=== PATIENT | female | born 1990 | race Caucasian/White ===

== ENCOUNTER 2018-06-13 14:26 | Outpatient (REF) | payer OTHER, SELFPAY ==
--- NOTE | 2018-06-13 14:00 | PAPFT_PTH ---
PATIENT: Chanel Esparza LOC: [facility] U#:[id number] AGE/SX: 28/F ROOM: RE06/13/[address]: Milan Valentin MD : 1990 BED: DIS: 06/13/2018 SPEC #: [id number] RECD: 06/13/18 17:55 STATUS: SCOTT REBaron #: [id number] CARINA: 06/13/18 14:[address]: Milan Valentin DEPT: [facility] Cytology RECD BY: Navya Koehler Tissues: 1 - CX/ENDOCX FOR PAP SMEARS Procedures: PAP THIN PREP/UVM Screening HPV DNA PROBE Comments: [id number] (CHLAMYDIA/GC)
[2018-06-14 15:54] LABS: Chlamydia Result Negative; GC Result Negative; Specimen Description SEE COMMENTS
== END 2018-06-13 14:46 ==
LOC: LBN 14:26
PROVIDERS: Visit Provider Obstetrics & Gynecology
DX: Z12.4 Encounter for screening for malignant neoplasm of cervix (principal); Z11.51 Encounter for screening for human papillomavirus (HPV); Z11.3 Encounter for screening for infections with a predominantly sexual mode of transmission; Z01.419 Encounter for gynecological examination (general) (routine) without abnormal findings
CPT/HCPCS: 87491; 87591; 88142; 87480; 87510; 87624; 87660

== ENCOUNTER 2018-08-17 18:06 | Outpatient (REF) | payer OTHER, SELFPAY ==
--- NOTE | 2018-08-17 15:00 | CER_PTH ---
PATIENT: Chanel Esparza LOC: [facility] U#:[id number] AGE/SX: 28/F ROOM: RE08/17/[address]: Ruthy Frances MD : 1990 BED: DIS: 08/17/2018 SPEC #: [id number] RECD: 08/17/18 18:12 STATUS: SCOTT RE #: [id number] CARINA: 08/17/18 15:[address]: Ruthy Frances DEPT: Surgical Specimen RECD BY: Navya Koehler Tissues: 1 - CERVICAL BIOPSY 2 - CERVICAL BIOPSY 3 - CERVICAL BIOPSY 4 - CERVICAL BIOPSY 5 - ENDOCERVICAL BX/CURRETTE Procedures: GROSS AND MICRO LEVEL 4 Comments: [id number]
== END 2018-08-17 18:26 ==
LOC: LBN 18:06
PROVIDERS: Visit Provider Obstetrics & Gynecology
DX: N72 Inflammatory disease of cervix uteri (principal); N87.9 Dysplasia of cervix uteri, unspecified; N88.8 Other specified noninflammatory disorders of cervix uteri; R87.810 Cervical high risk human papillomavirus (HPV) DNA test positive
CPT/HCPCS: 88305

== ENCOUNTER 2019-08-23 12:14 | Outpatient (REF) | payer SELFPAY ==
--- NOTE | 2019-08-23 11:30 | PAPFT_PTH ---
PATIENT: Chanel Esparza LOC: [facility] U#:[id number] AGE/SX: 29/F ROOM: RE08/23/[address]: Milan Valentin MD : 1990 BED: DIS: 08/23/2019 SPEC #: [id number] RECD: 08/23/19 13:16 STATUS: SCOTT REBaron #: [id number] CARINA: 08/23/19 11:[address]: Milan Valentin DEPT: [facility] Cytology RECD BY: Navya Koehler Tissues: 1 - CX/ENDOCX FOR PAP SMEARS Procedures: PAP THIN PREP/UVM Screening HPV DNA PROBE Comments: [id number]
== END 2019-08-23 12:34 ==
LOC: LBN 12:14
PROVIDERS: Visit Provider Obstetrics & Gynecology
DX: Z12.4 Encounter for screening for malignant neoplasm of cervix (principal)
CPT/HCPCS: 88142; 87624

== ENCOUNTER 2021-02-21 17:13 | Inpatient (IN) | payer BC, SELFPAY ==
--- NOTE | 2021-02-21 11:55 | APP_PTH ---
PATIENT: Chanel Esparza LOC: U#:[id number] AGE/SX: 31/F ROOM: RE02/21/[address]: Juli Anderson : 1990 BED: A DIS: 02/25/2021 SPEC #: [id number] RECD: 02/23/21 12:59 STATUS: SCOTT REQ #: [id number] CARINA: 02/21/21 11:[address]: Juli Anderson DEPT: Surgical Specimen RECD BY: Navya Koehler ENTERED: 02/23/21 12:59 SP TYPE: Appendix OTHR DR: Yuliet Velarde Tissues: 1 - APPENDIX NOT INCIDENTAL Procedures: GROSS AND MICRO LEVEL 3 Comments: [id number]
[2021-02-21 17:23] VITALS: BP 157/84; PULSE 111; RESP 20; TEMP 36.8; O2SAT 99
--- NOTE | 2021-02-21 17:45 | DI.CT_ITS ---
Exam(s) CT ABDOMEN PELVIS W EXAM: CT ABDOMEN PELVIS W INDICATION: RLQ pain, rebound guarding, has appendix and hx of. COMPARISON: No exams were available for comparison TECHNIQUE: FINDINGS: CT examination of the abdomen and pelvis was performed with a bolus infusion of 100 cc of Omnipaque 3 50. Images obtained through the lung bases are unremarkable. The liver is unremarkable in appearance. Prior cholecystectomy noted. No biliary dilatation. Pancreas appears normal. Spleen is unremarkable in appearance. Adrenals appear normal. The kidneys are unremarkable with no evidence of hydronephrosis, nephrolithiasis, or renal mass.. Ur inary bladder unremarkable. Abdominal aorta is of normal diameter and no major vascular abnormality is seen. No abdominal wall hernia. No abdominal or pelvic adenopathy. LOOP TACKER structures appear intact with an IUD in place in the uterine midline.. Appendix is markedly distended and thick-walled with and a visible appendicoliths at the base of the appendix. There is marked periappendiceal edema and small free fluid in the pelvis. Findings are hi ghly suggestive of acute appendicitis. No abscess or perforation identified. No evidence of diverticulitis or bowel obstruction. IMPRESSION: Acute appendicitis, no evidence of abscess or perforation at this time. RADIATION DOSE DELIVERED: 1,257.94mGy.cm Total DLP 1,257.94mGy.cm Total DLP RADIATION OPTIMIZATION: All CT scans at this facility use at least one of these dose optimization te chniques: automated exposure control; mA and/or kV adjustment per patient size (includes targeted exa ms where dose is matched to clinical indication); or iterative reconstruction.
--- NOTE | 2021-02-21 17:54 | W.ED.GENAD ---
Discharge Plan Discharge Details Chief Complaint: Abd Prob Attending Provider: Juli Anderson Primary Care Provider: Yuliet Velarde ED Provider: Navya Ramey Discharge Data Discharge Date/Time-TO BE ENTERED AT DEPARTURE: 02/21/21 22:05 Medical Decision Making Patient has evidence of acute appendicitis per Dr. Ely, radiology I personally reviewed the CT findings as well Leukocytosis noted, elevated CRP Case discussed with Dr. Anderson will take patient to the operating room Patient was initiated on Zosyn She declined any opiate analgesia. Patient received 2 L of normal saline, she did stop what I suspect is dehydration Tachycardia has mildly improved at 104 Differential Diagnosis Differential Diagnosis: Pelvic inflammatory disease, appendicitis, urinary tract infections, ovaria Medical Records Medical records reviewed: Yes I reviewed the patient's medical records. Lab Data Lab results reviewed: Yes I reviewed the patient's lab results. HPI General Mode of arrival: ambulatory. Date/Time Provider Initiated Documentation: 02/21/21 17:42. Limitations to Documentation: no limitations. Information obtained by: patient. HPI Narrative: This 31-year-old female presents with report of right upper quadrant pain for the past 34 hours. She did have a history of ovarian cyst but this pain was different. She states she is have some spotting in the past week but does have Mirena IUD and is unsure where she has been her cycles. She denies risk of sexually transmitted disease. Her pain is worse with ambulating. She states that her heart rate has been elevated but denies fever. She denies any nausea or vomiting. She denies anorexia. Denies similar pain to this in the past. States pain is been constant. Denies chance of .?Otherwise, Related Data Home Medications Medication Instructions Recorded Confirmed bupropion HCl 150 mg tablet,12 hr 450 mg PO DAILY 07/26/19 02/21/21 sustained-release Allergies Allergy/AdvReac Type Severity Reaction Status Date / Time No Known Drug Allergies Allergy Unverified 02/21/21 17:25 General Stated Complaint: Abd Prob DENAE: 3 Review of Systems Narrative: Review of systems obtained x7 aside from where indicated in HPI PFSH Surgical History (Updated 06/13/18 @ 13:21 by Valerie Guevara RN) H/O arthroscopic knee surgery History of laparoscopic cholecystectomy Right knee Social History (Updated 06/13/18 @ 13:24 by Valerie Guevara RN) Smoking/Tobacco Use Status: Never Smoking risk assessment performed?: Yes Alcohol Intake: current Alcohol Intake frequency: a few times a month Alcohol type: beer, wine and hard liquor Drug use: Occasionally Substance use type: marijuana Household members: none Number of Children: 0 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-60 minutes/day Frequency: 5-6 times per week Special lashawn needs: No Agree to transfusion: No Do you feel safe at home: Yes Victim of physical abuse: No Victim of emotional abuse: No Victim of sexual abuse: No Female Reproductive History Menstrual control method: progestin IUCD History History 0 Para Hx # Term Pregnancies Multiple births Hx # Pregnancies Ectopic pregnancies AB induced Hx Number of Living Children AB spontaneous Exam Const General: cooperative and no acute distress Chest Chest: normal inspection of the chest Resp Effort & Inspection: normal respiratory effort Auscultation: clear to auscultation bilaterally Cardio Rate: tachycardic Rhythm: regular rhythm GI Other: Focal peritonitis to right lower quadrant Skin General skin exam: no rashes or lesions noted Neuro General: patient alert and patient oriented x3 Course Vital Signs Vital signs: Vital Signs Temperature 36.8 C 02/21/21 17:23 Pulse 111 H 02/21/21 17:23 Respiratory Rate 20 02/21/21 17:23 Blood Pressure 157/84 H 02/21/21 17:23 Pulse Oximetry 99 02/21/21 17:23 Temperature 36.8 C 02/21/21 17:23 Temperature Source Skin 02/21/21 17:23 Pulse 111 H 02/21/21 17:23 Respiratory Rate 20 02/21/21 17:23 Respiratory Effort Non-Labored 02/21/21 17:26 Blood Pressure 157/84 H 02/21/21 17:23 Blood Pressure Position Sitting 02/21/21 17:23 Pulse Oximetry 99 02/21/21 17:23 Oxygen Delivery Method Room Air 02/21/21 17:23 Oxygen Flow Rate 0 02/21/21 17:23 Pain Level 6 02/21/21 17:23
[2021-02-21 18:23] LABS: Abs Immature Grans 0.06 10^3/uL (0.0-0.06); Absolute Basophil Count 0.06 10^3/uL (0.0-0.2); Absolute Eosinophil Count 0.05 10^3/uL (0.0-0.7); Absolute Lymphocyte Count 1.41 10^3/uL (1.2-3.4); Absolute Monocyte Count 2.31 10^3/uL (0.1-0.8); Basophils % 0.4; Eosinophils % 0.3; HCT 39.2 % (36.0-46.0); HGB 13.1 g/dL (11.2-15.7); Immature Grans % 0.4; Lymphocytes % 8.8; MCH 30.2 pg (27.0-33.0); MCHC 33.4 % (32.0-36.0); MCV 90.3 fL (80-95); MPV 8.9 fL (8.0-11.0); Monocytes % 14.4; Neutrophils % 75.7; Nucleated RBC 0 %; Platelet Count 280 10^3/uL (130-400); RBC 4.34 10^6/uL (3.93-5.22); RDW-SD 42.6 fL; WBC 16.06 10^3/uL (4.4-10.8)
[2021-02-21] MEDS: Normal Saline 1,000 ML 1000 ML IV ×2 (18:23→20:37)
[2021-02-21 18:44] LABS: Lipase 28 U/L (73-393)
[2021-02-21 18:48] LABS: Absolute Neutrophil Count 12.16 10^3/uL (1.2-6.7)
[2021-02-21] MEDS: Omnipaque 350 MG/ML 100 ML BTL IJ (18:57)
[2021-02-21] MEDS: Normal Saline - Diluent 50 ML VIAL IV (18:58)
[2021-02-21] MEDS: ACETAMINOPHEN 1,000 MG/100 ML BTL 400 MG IVPB (19:00)
[2021-02-21 19:08] LABS: Bilirubin Small (Negative); Blood Negative (Negative); Clarity Clear (Clear); Glucose Negative (Negative); Ketones >=160 mg/dL (Negative); Leukocyte Esterase Trace (Negative); Nitrite Negative (Negative); Specific Gravity >= 1.030 (1.005-1.025); Urobilinogen 0.2 EU/dL (Up TO 0.2)
[2021-02-21 19:24] LABS: Bacteria Negative HPF (Negative); Casts Negative LPF (Negative); Crystals Negative HPF (Negative); Epithelial Cells Few HPF (Negative); Mucus Negative (Negative); Other Cells Negative (Negative); RBC Negative HPF (0-2)
[2021-02-21 19:25] LABS: C & S Indicated? Yes
[2021-02-21 19:43] LABS: Anion Gap 14.4 mmol/L (3-11); CO2 23.6 mmol/L (21.0-32.0); Chloride 102 mmol/L (98-107); Potassium 3.6 mmol/L (3.5-5.1); Sodium 140 mmol/L (136-145)
[2021-02-21 19:52] LABS: ALT 35 U/L (14-59); AST 23 U/L (15-37); Albumin 3.5 g/dL (3.4-5.0); Alkaline Phosphatase 59 U/L (46-116); BUN 10 mg/dL (7-18); CREATININE 0.9 mg/dL (0.55-1.02); Calcium 8.8 mg/dL (8.5-10.1); Glucose 79 mg/dL (74-106); Total Protein 7.4 g/dL (6.4-8.2)
--- NOTE | 2021-02-21 20:10 | DI.VRAD_ITS ---
PROCEDURE INFORMATION: Exam: CT Abdomen And Pelvis With Contrast Exam date and time: 02/21/2021 5:55 PM Age: 31 years old Clinical indication: Abdominal pain; Localized; Right lower quadrant (rlq); Patient HX: Rlq pain, rebound guarding, has appendix TECHNIQUE: Imaging protocol: Computed tomography of the abdomen and pelvis with contrast. Total images: 1227 COMPARISON: No relevant prior studies available. FINDINGS: Lungs: Lung bases are unremarkable. Liver: Homogeneously enhances without mass. Gallbladder and bile ducts: Status post cholecystectomy. Pancreas: No mass or peripancreatic edema. Spleen: Homogeneously enhances. No splenomegaly. Adrenal glands: No adrenal nodule. Kidneys and ureters: Kidneys homogeneously enhance. No hydronephrosis. No renal or ureteral calculi. Stomach and bowel: Stomach is grossly unremarkable. No small or large bowel dilatation. No definite bowel wall thickening. Appendix: The appendix is markedly distended to 2 cm. There is a large appendicolith at its base as well as 1 near its tip. Appendiceal wall is mildly thickened. Small amount of intraluminal air near the base of the appendix. There is moderate stranding and fluid within the adjacent mesentery. No abscess. No extraluminal air. Intraperitoneal space: Mild amount of free fluid in the cul-de-sac. Vasculature: No abdominal aortic aneurysm. Lymph nodes: No significant adenopathy. Urinary bladder: No definite bladder wall thickening. Reproductive: Symmetric follicular changes in the ovaries. IUD properly position in an anteverted uterus. Bones/joints: No significant bony or joint space abnormality. Soft tissues: Extra-abdominal soft tissues are unremarkable. IMPRESSION: 1. Acute appendicitis. 2. THIS REPORT CONTAINS FINDINGS THAT MAY BE CRITICAL TO PATIENT CARE. The findings were verbally communicated via telephone conference with Navya Ramey at 8:10 PM EDT on 02/21/2021. The findings were acknowledged and understood. Dictated and Authenticated by: Alejandro Sena MD. Ordering:MARIAN Mendosa MD
[2021-02-21 20:12] VITALS: BP 118/67; PULSE 104; RESP 16; TEMP 36.7; O2SAT 98
[2021-02-21] MEDS: PIPERACILLIN/TAZO 3.375 GM in Normal Saline 50 ML IVPB (20:35)
[2021-02-21 20:39] LABS: Source Nasal/Nares
--- NOTE | 2021-02-21 21:02 | ANES.PREOP_ITS ---
General Info Date of Service Date Performed: 02/21/21 Height: 5 ft 5 in Weight: 106.594 kg Body Mass Index (BMI): 39.1 Surgical Procedure: Operation Date: 02/21/21 20:45 Proposed Procedures Side Surgeon p Appendectomy Laparoscopic Not Applicable Juli Anderson DO Meds Allergies and Home Medications Allergies Allergy/AdvReac Type Severity Reaction Status Date / Time No Known Drug Allergies Allergy Unverified 02/21/21 17:25 Home Medication Medication Instructions Recorded bupropion HCl 150 mg tablet,12 hr 450 mg PO DAILY 07/26/19 sustained-release Current Visit Medications: Current Medications Generic Name Dose Route Start Last Admin Trade Name Freq PRN Reason Stop Dose Admin Sodium Chloride 1,000 mls @ 1,000 mls/hr 02/21/21 20:11 02/21/21 20:37 Saline 1000ml Bag IV 02/21/21 21:10 1,000 mls/hr BOLUS ONE Administration Iohexol 100 ml 02/21/21 19:00 02/21/21 18:57 Omnipaque 350 Mg/Ml 100 Ml Btl IJ 03/23/21 23:59 100 ml DIRECTED JOHNSON Administration Sodium Chloride 50 ml 02/21/21 19:00 02/21/21 18:58 Normal Saline - Diluent 50 Ml Vial IV 50 ml .FOR DI USE JOHNSON Administration PFSH Active Problems Active Problems: Problem Status Onset Code Screening for malignant neoplasm of cervix Z12.4 Encounter for insertion of mirena IUD Z30.430 Asthma J45.909 Surgical History Surgical History (Updated 06/13/18 @ 13:21 by Valerie Guevara RN) H/O arthroscopic knee surgery History of laparoscopic cholecystectomy Right knee Tobacco Smoking/Tobacco Use Status: Never Alcohol Alcohol Intake: current Alcohol intake frequency: a few times a month Alcohol type: beer, wine and hard liquor Substance Use Substance use: Occasionally Substance use type: marijuana Prental History History 0 Para Hx # Term Pregnancies Multiple births Hx # Pregnancies Ectopic pregnancies AB induced Hx Number of Living Children AB spontaneous Vital Signs and Lab Results Vital Signs Most Recent Vital Signs in EMR: Most Recent Vital Signs Temp Pulse Resp BP Pulse Ox 36.7 C 104 H 16 118/67 98 02/21/21 20:12 02/21/21 20:12 02/21/21 20:12 02/21/21 20:12 02/21/21 20:12 Point of Care Results Point of Care Results: POC- Test(urine) Negative 02/21/21 18:24 Lab Results Result Diagrams: 02/21/21 18:15 02/21/21 18:15 Blood Type / Crossmatch: No Data to Display Complete Blood Count: White Blood Count 16.06 10^3/uL (4.4-10.8) H 02/21/21 18:15 02/21/21 Red Blood Count 4.34 10^6/uL (3.93-5.22) 02/21/21 18:15 02/21/21 Hemoglobin 13.1 g/dL (11.2-15.7) 02/21/21 18:15 02/21/21 Hematocrit 39.2 % (36.0-46.0) 02/21/21 18:15 02/21/21 Platelet Count 280 10^3/uL (130-400) 02/21/21 18:15 02/21/21 Complete Metabolic Panel: 2 Sodium Level 140 mmol/L (136-145) 02/21/21 18:15 02/21/21 Potassium Level 3.6 mmol/L (3.5-5.1) 02/21/21 18:15 02/21/21 Chloride Level 102 mmol/L (98-107) 02/21/21 18:15 02/21/21 Carbon Dioxide Level 23.6 mmol/L (21.0-32.0) 02/21/21 18:15 02/21/21 Blood Urea Nitrogen 10 mg/dL (7-18) 02/21/21 18:15 02/21/21 Creatinine 0.9 mg/dL (0.55-1.02) 02/21/21 18:15 02/21/21 Calcium Level 8.8 mg/dL (8.5-10.1) 02/21/21 18:15 02/21/21 Albumin 3.5 g/dL (3.4-5.0) 02/21/21 18:15 02/21/21 Glucose Level 79 mg/dL (74-106) 02/21/21 18:15 02/21/21 C-Reactive Protein 7.80 mg/dL (0.0-0.3) H 02/21/21 18:15 02/21/21 Liver Function Panel: Alanine Aminotransferase (ALT/SGPT) 35 U/L (14-59) 02/21/21 18:15 02/21/21 Aspartate Amino Transf (AST/SGOT) 23 U/L (15-37) 02/21/21 18:15 02/21/21 Coagulation Panel: No Data to Display Cardiac Panel: No Data to Display Arterial Blood Gas: No Data to Display Venous Blood Gas: No Data to Display Pancreas Panel: Lipase 28 U/L (73-393) 02/21/21 18:15 02/21/21 Thyroid Panel: No Data to Display Infectious Disease: Coronavirus (COVID-19)(PCR) Pending 02/21/21 20:15 02/21/21 Coronavirus 2019 Source Nasal/nares 02/21/21 20:15 02/21/21 Blood Cultures: No Data to Display Toxicology Panel: No Data to Display Panel: No Data to Display Anesthesia Assessment and Plan Anesthesia History Personal History: No History of Anesthesia Complications and PONV Family History: No Family History of Anesthesia Complications Exercise Tolerance Exercise Tolerance: Metabolic Equivalents>4 Pertinent Negatives Pertinent Negatives: No Symptoms of GERD, No Major Cardiovascular Symptoms or Complaints, No Major Pulmonary Symptoms or Complaints (Asthma well controlled ), No History of CVA/TIA and Other Cardiac & Pulmonary Exam Cardiac Exam: Normal S1/S2 Heart Sounds Pulmonary Exam: Clear Bilateral Breath Sounds Airway Exam Known Difficult Airway: No Mallampati Class: 2 Mouth Opening: Narrow (< 3cm) Thyromental Distance: Less than 3 cm Neck Range of Motion: Full ROM Neck Circumference: Normal Teeth Condition: Loose or Chipped ASA Classification ASA Score: ASA 2 Emergency Case?: Yes NPO Status NPO Status: NPO Clears >2 hours, Solids >8 hours Status Status: Negative HCG Anesthesia Plan Resuscitation Status: Full Code Anesthesia Technique: General Anesthesia Airway Planned: Endotracheal Tube Monitors Used: Standard Monitors
--- NOTE | 2021-02-21 21:17 | W.PM.HP.N ---
Date of service: 02/21/21 Time of Service: 21:18 Assessment and Plan Assessment and plan (1) Asthma: Status: Chronic (2) Acute appendicitis: Status: Acute Assessment and plan: Informed consent is obtained for the procedural (explained in simple layman's terms that the pt and/or family could understand) explaining risks vs benefits and alternatives to the procedure and consequences if we do not do the procedure. Risks include but are not limited to:bleeding,infections, pneumonia, blood clots/DVT/PE, anesthesia(aspiration, damage to teeth/airway/AK/CVA//prolonged mechanical ventilation/PTX/IV infections), damage to bowel, bladder,blood vessels, ureters. Infertility. Leakage from anastomosis/suture line, requiring colostomy/ Wound infections requiring further surgery.Scarring and disfigurement. Subsequent bowel obstructions from scar tissue. Possible open procedure if minimally invasive procedure is being attempted. Hernias. And other unforetold complications. Patient does want to go home to spend the night. We will see how she wakes up anesthesia. We will try PONV patch and see if that helps with her postop nausea and vomiting. She did receive Zosyn in the ED (3) PONV (postoperative nausea and vomiting): Status: Acute History of Present Illness Consults Consult date: 02/21/21 Narrative: Pt started having RLQ pain on Tuesday. Also Noted minimal appetite. She does have a history of ovarian cysts- and thought it was just another cyst forming. Today the pain became severe, she had absolutely no appetite and nausea. She came into the ED this evening. She does have a history of ovarian cyst. She does not have a history of GI problems. She is a traveling nurse. She is unvaccinated for Covid. She does have a history of asthma-it has not been a problem for her lately. She does not use any inhalers. She is not a smoker. She does have a history of postop nausea and vomiting. She has had a previous lap anila and left knee surgery. I did personally review her CT and her lab work. Covid test pending. She did have a negative test 5 days ago. No history of any heart problem. No history of diabetes. She is not smoker. Review of Systems All systems reviewed & are unremarkable except as noted in HPI and below [facility] Surgical History (Updated 06/13/18 @ 13:21 by Valerie Guevara RN) H/O arthroscopic knee surgery History of laparoscopic cholecystectomy Right knee Social History (Updated 06/13/18 @ 13:24 by Valerie Guevara RN) Smoking/Tobacco Use Status: Never Smoking risk assessment performed?: Yes Alcohol Intake: current Alcohol Intake frequency: a few times a month Alcohol type: beer, wine and hard liquor Drug use: Occasionally Substance use type: marijuana Household members: none Number of Children: 0 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 times per week Special lashawn needs: No Agree to transfusion: No Do you feel safe at home: Yes Victim of physical abuse: No Victim of emotional abuse: No Victim of sexual abuse: No Female Reproductive History Menstrual control method: progestin IUCD History History 0 Para Hx # Term Pregnancies Multiple births Hx # Pregnancies Ectopic pregnancies AB induced Hx Number of Living Children AB spontaneous Meds Allergies and Home Medications Allergies Allergy/AdvReac Type Severity Reaction Status Date / Time No Known Drug Allergies Allergy Unverified 02/21/21 17:25 Home Medications Medication Instructions Recorded Confirmed Type bupropion HCl 150 mg tablet,12 hr 450 mg PO DAILY 07/26/19 02/21/21 History sustained-release Exam Const General: cooperative, healthy appearing, comfortable, no acute distress, well developed and well groomed Nutritional Appearance: average body habitus and well nourished Orientation: alert, awake and oriented x3 HENMT Head: normal to inspection, normocephalic and atraumatic Ears: hearing grossly normal bilaterally and external ears normal General nose exam: external nose normal Face and sinus: normal facial exam and sinuses nontender Mouth: oral mucosae normal, lip normal, tongue normal and moist mucous membranes Teeth and gingiva: dentition normal Eyes General: appearance normal, both eyes and all related structures Conjunctivae: conjunctivae normal Sclera: sclerae normal Pupils: PERRL Neck Neck: normal visual inspection and full ROM Chest Chest: normal inspection of the chest Resp Effort & Inspection: normal respiratory effort, able to speak in complete sentences, no cough, no nasal flaring, not tachypneic and no use of accessory muscles Auscultation: clear to auscultation bilaterally, no rales, no rhonchi and no wheezes Cardio Jugular venous pressure: no JVD Rate: regular rate Rhythm: regular rhythm GI Inspection: normal to inspection, no edema and non-distended Palpation: soft, no hernias, no masses, tender in the RLQ and No ascites Auscultation: normal bowel sounds Other: Localized rebound and guarding in the right lower quadrant. Bowel sounds are hypoactive. No hernias at the umbilicus. Incisions from previous lap anila noted Skin General skin exam: no rashes or lesions noted Trauma: no lacerations or abrasions Neuro General: patient alert, patient oriented x3, oriented, gait normal, moves all extremities, no focal motor deficits and CN's II-XI intact bilaterally Cognition: normal cognition Speech: speech normal Gait: normal gait Motor: muscle tone normal throughout Extrem General: normal to inspection, full ROM and no clubbing, cyanosis or edema Psych Appearance: grossly normal and well kempt Mental Status: mental status grossly normal Speech and Movement: speech and movement normal Affect: normal affect Results Labs Result diagrams: 02/21/21 18:15 02/21/21 18:15 Labs: Laboratory Results - last 24 hr 02/21/21 02/21/21 02/21/21 18:15 18:15 18:15 WBC 16.06 H RBC 4.34 Hgb 13.1 Hct 39.2 MCV 90.3 MCH 30.2 MCHC 33.4 RDW 13.0 Plt Count 280 MPV 8.9 Immature Gran % 0.4 Neutrophils % 75.7 Lymphocytes % 8.8 Monocytes % 14.4 Eosinophils % 0.3 Basophils % 0.4 Nucleated RBC % 0 Absolute Neutrophils 12.16 H Absolute Lymphocytes 1.41 Absolute Monocytes 2.31 H Absolute Eosinophils 0.05 Absolute Basophils 0.06 Sodium 140 Potassium 3.6 Chloride 102 Carbon Dioxide 23.6 Anion Gap 14.4 H BUN 10 Creatinine 0.9 Estimated GFR/1.73 m2 >= 60.00 Glucose 79 Calcium 8.8 Total Bilirubin 1.0 AST 23 ALT 35 Alkaline Phosphatase 59 C-Reactive Protein 7.80 H Total Protein 7.4 Albumin 3.5 Lipase 28 Urine Color Urine Clarity Urine pH Ur Specific [place] Urine Protein Urine Ketones Urine Blood Urine Nitrite Urine Bilirubin Urine Urobilinogen Ur Leukocyte Esterase Urine RBC Urine WBC Ur Epithelial Cells Urine Crystals Urine Bacteria Urine Casts Urine Mucus Urine Other Ur Culture Indicated? Urine Glucose COVID-19 Source 02/21/21 02/21/21 18:15 20:15 WBC RBC Hgb Hct MCV MCH MCHC RDW Plt Count MPV Immature Gran % Neutrophils % Lymphocytes % Monocytes % Eosinophils % Basophils % Nucleated RBC % Absolute Neutrophils Absolute Lymphocytes Absolute Monocytes Absolute Eosinophils Absolute Basophils Sodium Potassium Chloride Carbon Dioxide Anion Gap BUN Creatinine Estimated GFR/1.73 m2 Glucose Calcium Total Bilirubin AST ALT Alkaline Phosphatase C-Reactive Protein Total Protein Albumin Lipase Urine Color Yellow Urine Clarity Clear Urine pH 6.0 Ur Specific [place] >= 1.030 H Urine Protein Negative Urine Ketones >=160 H Urine Blood Negative Urine Nitrite Negative Urine Bilirubin Small H Urine Urobilinogen 0.2 Ur Leukocyte Esterase Trace H Urine RBC Negative Urine WBC 3-5 Ur Epithelial Cells Few Urine Crystals Negative Urine Bacteria Negative Urine Casts Negative Urine Mucus Negative Urine Other Negative Ur Culture Indicated? Yes Urine Glucose Negative COVID-19 Source Nasal/nares Last Vital Signs Temp 36.7 C 02/21/21 20:12 Pulse 104 H 02/21/21 20:12 Resp 16 02/21/21 20:12 BP 118/67 02/21/21 20:12 Pulse Ox 98 02/21/21 20:12 COVID-19 Screening Have you, or household traveled for leisure in last 14 days?: Yes Had IN PERSON contact w/suspected or confirmed C-19 person: No
[2021-02-21 21:21] VITALS: BMI 39.1
--- NOTE | 2021-02-21 21:35 | ROE_ITS ---
Date of service: 02/21/21 Time of Service: 21:36 Operative Note Operative Note DATE OF PROCEDURE: 02/21/21 PRE-OP DIAGNOSIS: acute appy POST-OP DIAGNOSIS: other (ruptured appy) PROCEDURE: attempted lap/open appy SURGEON: Yaquelin Miller GLASS FRAME FITTER: Yaquelin Hawthorne ANESTHESIA TYPE: Local By Surgeon and General LMA/ETT Refer to Anesthesia Record ESTIMATED BLOOD LOSS: 25 PATHOLOGY: other COMPLICATIONS: None Patient was transported to: PACU Patient's condition: stable Procedure Description: : The patient has signs and symptoms compatible with acute appendicitis and is brought to the OR for laparoscopic appendectomy, possible open procedure. Informed consent is obtained for the procedural (explained in simple layman's terms that the pt and/or family could understand) explaining risks vs benefits and alternatives to the procedure and consequences if we do not do the procedure. Risks include but are not limited to:bleeding,infections, pneumonia, blood clots/DVT/PE, anesthesia(aspiration, damage to teeth/airway/FL/CVA//prolonged mechanical ventilation/PTX/IV infections), damage to bowel, bladder,blood vessels, ureters. Damage to solid organs requiring removal. Infertility. Leakage from anastomosis requiring colostomy. Wound infections requirng further surgery. Scarring and disfigurement. Subsequent bowel obstructions from scar tissue. Possible open procedure if minimaly invsive procedure is being attempted. Abscess and stump appendicitis as well as others. DESCRIPTION OF PROCEDURE: The patient was brought to the operating room suite and placed in supine position. Anesthesia was administered per the Department of Anesthesia. A Padilla catheter and OG tube are placed. The patient was prepped and draped in the usual sterile fashion using ChloraPrep scrub solution. Pause for the cause was done. 30 mL of half percent Marcaine was used for local anesthetization. A stab incision was made in the umbilicus and the Veress was inserted. She has had a laparoscopic cholecystectomy in the past. I was not able to place the very successfully, so at this point a cutdown was performed. 0 Vicryl sutures are used for fascial stay sutures. A finger was placed into the peritoneum and the adhesions were bluntly taken down. The 5 mm port was placed . the camera was inserted through the port. There is no damage to underlying structures. Bowel, liver and stomach that are visualized are normal in appearance. Uterus is normal. She does have a small right ovarian cyst. The left ovary was not identified . the appendix is inflamed, erythematous,enlarged, & distened. It is adhered to the sidewall and is adhesed to the small bowel. There is 20 cc of green, purulent drainage in the pelvis. A 12 mm port was then placed in the suprapubic position under direct visualization following creation of a local field block as well as a second 5 mm port in the LLQ. As the appendix is initially grasped, it is so necrotic, that, it unfortunately ruptures and there is stool leakage into the abdomen. Considerable amount of time is spent dissecting the appendix from the anterior sidewall and from the loops of small bowel. As well as dissecting the cecum and freeing up the peritoneal attachments. I was finally able to identify the appendiceal mesentery. This is transected with 2 Endo SHERYA staplers with the vascular load. The stump of the appendix and the staple line on the cecum are necrotic and the tissue is not healthy. Multiple multiple maneuvers were tried to get it the stapler across a small portion of the cecum and to complete the procedure laparoscopically. Unfortunately I am not able to accomplish this There is not technically feasible. At this point it was decided to open the abdomen to facilitate excision of the necrotic stump and necrotic areas on the cecum and oversew oversewn the cecum. A 4 inch incision paramedian vertical incision is made at McBurney's point. Electrocautery was used to provide hemostasis, and dissect through the fascia. The rectus is retracted medially. The peritoneum is elevated. and the abdomen is entered sharpl. the cecum is delivered through the incision. The base is grasped with Allis and elevated. At this angle I am able to place the SHREYA stapler across the unhealthy portions and remove the appendiceal stump and a small portion of the cecum- 3 cm long and 1 cm wide. The staple line was then oversewn with interrupted 4-0 sutures in a traditional Lembert fashion. We are nowhere near the ileocecal valve, and this should not affect digestion once it is completely healed. There is still a good lumen palpable. There is no signs of any bleeding or ischemia. The abdomen is then quickly irrigated with 5 L saline making sure to go over the liver indenting the pelvis. The small bowel is run and there is no interloop abscesses. A 15 Korean Winston drain is passed through the suprapubic port site and sewn in place with 0 nylon. the drain is placed on the right gutter & pelvis. All structures are returned to their normal anatomic position. Interceed is placed into the wound. The peritoneum and posterior fascia is closed with 0 Vicryl in a running fashion. The anterior fascia was closed with 0 Vicryl in a [id number] interrupted fashion. Sponge, needle count, instrument counts are all correct. The fat pad is copiously irrigated with 500 cc of saline. the skin was loosely approximated with 2-0 nylon. Betadine soap pledgets are placed into the skin incision. Skin toney were used to close the port site. And glue was applied. Sterile dressings are applied patient tolerated the procedure well without complication transferred condition. She will be admitted to the hospital for pain management, IV antibiotics, bowel rest. Mother was apprised of the findings at surgery and her condition and prognosis. YAQUELIN MILLER, DO ?
[2021-02-21 22:00] LABS: COVID-19 PCR Negative (Negative)
[2021-02-21] MEDS: Scopolamine 1 MG/3 DAYS PATCH TD (22:10)
[2021-02-22] VITALS (17 sets, daily range): BP systolic 100–140; BP diastolic 64–82; PULSE 68–98; RESP 17–22; TEMP 36–37.2; O2SAT 93–100
[2021-02-22] MEDS: Lactated Ringers 1,000 ML 30 ML IV (01:30)
--- NOTE | 2021-02-22 03:10 | PGE_ITS ---
Date of Service Date of service: 02/22/21 Time of Service: 03:10 Assessment and Plan Assessment and plan (1) Ruptured suppurative appendicitis: Status: Acute Assessment and plan: The patient is doing well post-op. Their pain is well controlled. They are having no nausea or vomiting. The pt is not having any chest pain or SOB, productive cough; no calf pain or swelling. The pt is making good urine. The pt pain is adequately controlled. The case was discussed with nursing and patient?s progress reviewed. All of the pt's home medications were addressed and adjusted accordingly for their oral intact status. HEENT: no jaundice. no eye pain/drainage/redness/swelling. Mild sore throat Cardio- NSR no chest pain, BP stable. Pulm: no sob or productive cough. no hemoptysis Incision- clean/dry. Dressing intact no excessive bleeding or drainage I discussed with the patient and/or there family about the findings in surgery and the pt's progress. We reviewed expectations for progress in the hospital; what the pt could expect for recovery time and length of stay. We discussed the importance of walking and pulmonary toilet to avoid blood clots and pneumonia. Continue current plans for pulmonary toilet, GI and DVT prophylaxis. We shall continue the current plan for pain management as it is at an appropriate level, and working well for the pt. Appropriate measures will be taken for constipation prevention, and this was also reviewed with the pt. The wound care plan was reviewed with nursing as well. see orders (2) PONV (postoperative nausea and vomiting): Status: Acute (3) Acute appendicitis: Status: Acute (4) Asthma: Status: Chronic (5) Anxiety: Status: Chronic Objective Last Vital Signs Temp 36.6 C 02/22/21 02:52 Pulse 68 02/22/21 02:52 Resp 22 02/22/21 02:52 BP 134/68 02/22/21 02:52 Pulse Ox 100 02/22/21 02:52 Laboratory Results - last 24 hr 02/21/21 02/21/21 02/21/21 18:15 18:15 18:15 WBC 16.06 H RBC 4.34 Hgb 13.1 Hct 39.2 MCV 90.3 MCH 30.2 MCHC 33.4 RDW 13.0 Plt Count 280 MPV 8.9 Immature Gran % 0.4 Neutrophils % 75.7 Lymphocytes % 8.8 Monocytes % 14.4 Eosinophils % 0.3 Basophils % 0.4 Nucleated RBC % 0 Absolute Neutrophils 12.16 H Absolute Lymphocytes 1.41 Absolute Monocytes 2.31 H Absolute Eosinophils 0.05 Absolute Basophils 0.06 Sodium 140 Potassium 3.6 Chloride 102 Carbon Dioxide 23.6 Anion Gap 14.4 H BUN 10 Creatinine 0.9 Estimated GFR/1.73 m2 >= 60.00 Glucose 79 Calcium 8.8 Total Bilirubin 1.0 AST 23 ALT 35 Alkaline Phosphatase 59 C-Reactive Protein 7.80 H Total Protein 7.4 Albumin 3.5 Lipase 28 Urine Color Urine Clarity Urine pH Ur Specific [place] Urine Protein Urine Ketones Urine Blood Urine Nitrite Urine Bilirubin Urine Urobilinogen Ur Leukocyte Esterase Urine RBC Urine WBC Ur Epithelial Cells Urine Crystals Urine Bacteria Urine Casts Urine Mucus Urine Other Ur Culture Indicated? Urine Glucose COVID-19 Source SARS-CoV-2 (PCR) 02/21/21 02/21/21 18:15 20:15 WBC RBC Hgb Hct MCV MCH MCHC RDW Plt Count MPV Immature Gran % Neutrophils % Lymphocytes % Monocytes % Eosinophils % Basophils % Nucleated RBC % Absolute Neutrophils Absolute Lymphocytes Absolute Monocytes Absolute Eosinophils Absolute Basophils Sodium Potassium Chloride Carbon Dioxide Anion Gap BUN Creatinine Estimated GFR/1.73 m2 Glucose Calcium Total Bilirubin AST ALT Alkaline Phosphatase C-Reactive Protein Total Protein Albumin Lipase Urine Color Yellow Urine Clarity Clear Urine pH 6.0 Ur Specific [place] >= 1.030 H Urine Protein Negative Urine Ketones >=160 H Urine Blood Negative Urine Nitrite Negative Urine Bilirubin Small H Urine Urobilinogen 0.2 Ur Leukocyte Esterase Trace H Urine RBC Negative Urine WBC 3-5 Ur Epithelial Cells Few Urine Crystals Negative Urine Bacteria Negative Urine Casts Negative Urine Mucus Negative Urine Other Negative Ur Culture Indicated? Yes Urine Glucose Negative COVID-19 Source Nasal/nares SARS-CoV-2 (PCR) Negative
[2021-02-22] MEDS: Normal Saline 1,000 ML 125 ML IV ×2 (04:22→16:01)
[2021-02-22] MEDS: Pantoprazole 40 MG VIAL IVP (05:26)
[2021-02-22] MEDS: Normal Saline Flush 10 ML SYR IVP ×4 (05:28→13:32)
[2021-02-22] MEDS: PIPERACILLIN/TAZO 4.5 GM in Normal Saline 100 ML IVPB ×3 (05:39→19:45)
[2021-02-22] MEDS: Ketorolac 15 MG/ML VIAL IVP ×4 (05:55→19:43)
[2021-02-22 07:05] LABS: Abs Immature Grans 0.05 10^3/uL (0.0-0.06); Absolute Basophil Count 0.02 10^3/uL (0.0-0.2); Basophils % 0.1; HCT 39.7 % (36.0-46.0); HGB 13.1 g/dL (11.2-15.7); Immature Grans % 0.3; Lymphocytes % 3.1; MCH 30.1 pg (27.0-33.0); MCV 91.3 fL (80-95); MPV 8.9 fL (8.0-11.0); Monocytes % 11.6; Neutrophils % 84.9; Nucleated RBC 0 %; Platelet Count 262 10^3/uL (130-400); RBC 4.35 10^6/uL (3.93-5.22); RDW 13.3 % (11.7-14.6); RDW-SD 45.3 fL; WBC 15.57 10^3/uL (4.4-10.8)
[2021-02-22 07:12] LABS: Absolute Lymphocyte Count 0.48 10^3/uL (1.2-3.4); Absolute Monocyte Count 1.81 10^3/uL (0.1-0.8); Absolute Neutrophil Count 13.22 10^3/uL (1.2-6.7)
[2021-02-22 07:25] LABS: ALT 27 U/L (14-59); AST 21 U/L (15-37); Albumin 3.1 g/dL (3.4-5.0); Alkaline Phosphatase 52 U/L (46-116); Anion Gap 14.8 mmol/L (3-11); BUN 7 mg/dL (7-18); CO2 18.2 mmol/L (21.0-32.0); CREATININE 0.7 mg/dL (0.55-1.02); Calcium 8.5 mg/dL (8.5-10.1); Chloride 105 mmol/L (98-107); Glucose 119 mg/dL (74-106); Potassium 3.8 mmol/L (3.5-5.1); Sodium 138 mmol/L (136-145); Total Protein 6.7 g/dL (6.4-8.2)
[2021-02-22 07:36] LABS: Diff Comment Agrees w/ Instrument; RBC Morphology Normal
[2021-02-22] MEDS: ACETAMINOPHEN 1,000 MG/100 ML BTL 400 MG IVPB ×3 (08:00→19:43)
[2021-02-22] MEDS: HYDROmorphone 2 MG/ML VIAL 0.4 MG IVP (13:31)
[2021-02-22] MEDS: Ondansetron 4 MG/2 ML VIAL IVP (13:31)
[2021-02-22] MEDS: Enoxaparin 40 MG/0.4 ML SYR SC (13:32)
--- NOTE | 2021-02-22 16:08 | W.ANESPOSTOP ---
Postoperative Evaluation Date, Time and Location Date Performed: 02/22/21 Time Performed: 16:08 Patient Location: Med/Surg Vital Signs Most Recent Imported Vital Signs: Most Recent Vital Signs Temp Pulse Resp BP Pulse Ox 37.2 C 82 17 100/64 97 02/22/21 15:52 02/22/21 15:52 02/22/21 15:52 02/22/21 15:52 02/22/21 15:52 Pain Score Most Recent Pain Score: Most Recent Pain Score Pain Level 4 02/22/21 15:52 Assessment Mental Status: Awake (Alert & Oriented to Patient Baseline) Airway and Respiratory Function: Patent airway with normal (patient baseline) respiratory exam Cardiovascular Function: Hemodynamically Stable Hydration Status: Adequately Hydrated Nausea & Vomiting: No Nausea or Vomiting Pain: Pain is tolerable/mild (<5/10) Peripheral Nerve Block: Patient did not receive a nerve block
--- NOTE | 2021-02-22 17:04 | PDOC.CMIN ---
- If Service Date Differs Date of service: 02/22/21 Time of Service: 17:04 Care Management Initial Assess REASON FOR HOSPITALIZATION:: Ruptured Appendix PAST MEDICAL HISTORY/PAST SURGICAL HISTORY:: H/O arthroscopic knee surgery. History of laparoscopic cholecystectomy. Right knee PREVIOUS FUNCTIONAL STATUS/SOCIAL/FAMILY SUPPORTS:: Chanel resides in [place], and is independent at baseline. She is currently a RN at [employer]. Her mother resides in the next [facility] and is her primary support person. CURRENT FUNCTIONAL STATUS:: Chanel is doing well post-op per Dr. Anderson she is being encouraged to ambulate through the hallways. ADVANCE DIRECTIVES:: None on file at [facility]. Has patient been provided with info about the portal/API?: No Did the patient sign up for the portal?: No CODE STATUS:: Full Code INSURANCE COVERAGE / FINANCIAL ISSUES:: BC BS Other CURRENT HOME/COMMUNITY SERVICES/EQUIPMENT:: None currently; independent at baseline. PRIMARY CARE PHYSICIAN:: Yuliet Velarde POTENTIAL DISCHARGE NEEDS:: Follow up appointments. PATIENT/FAMILY EDUCATION NEEDS:: Review discharge instructions, discuss Ask Me Three. ANTICIPATED BARRIERS TO DISCHARGE:: None identified. TRANSPORTATION:: Via private vehicle with family. PLAN:: Per MD: current plans for pulmonary toilet, GI and DVT prophylaxis. We shall continue the current plan for pain management as it is at an appropriate level, and working well for the pt. Appropriate measures will be taken for constipation prevention, and this was also reviewed with the pt. The wound care plan was reviewed with nursing as well. Anticipate once medically cleared, Chanel will discharge home with no additional services and transport via private vehicle with family.
[2021-02-22] MEDS: Docusate Sodium 100 MG CAP PO (19:43)
--- NOTE | 2021-02-22 23:02 | W.PM.PROGNOT ---
Date of Service Date of service: 02/22/21 Time of Service: 15:00 Assessment and Plan Assessment and plan (1) Anxiety: Status: Chronic (2) Ruptured suppurative appendicitis: Status: Acute Assessment and plan: Postop day #1. Status post open appendectomy for ruptured appendix. I did discuss with the patient and her parents the findings at the time of surgery. Her appendix was extremely necrotic all the way to the base. And I did have to take a small piece of cecum in order to have healthy tissue to sew into. This should not cause any permanent changes to her bowel function. I did discuss with the patient and her parents that she is at high risk for abscess and hernia. She is going to need to stay in the hospital for couple days on IV antibiotics and monitor closely. We discussed the importance of walking and pulmonary toilet. Her wound is open. The wound VAC was ordered She is on Zon Pulmonary toilet and GI prophylaxis Encourage walking She will probably be in the hospital 3 to 5 days. She should not plan on going back to work for the next 2 weeks. When she does go back to work in [place] she will need to go on light duty. Provided she does not have any further complications (3) Asthma: Status: Chronic Subjective Subjective Interval history since last seen: Patient slept through the night and most of the morning. She is awake this afternoon and her parents are with her today. Pain is well controlled. She has had about 650 cc on her of her NG tube in total. She is eating a lot of ice chips and water. Drain is sanguinous - 135cc no headaches. No CP or SOB. no productive cough. no dysuria. no leg pain or swelling. Urine is clear yellow and plentiful?see eyes and nose. NG tube is bilious. She is not passing any gas. Exam HENTX Other: No headaches. No eye redness/pain/swelling. No dental pain. No sore throat. No thrush. No malocclusion. Resp Effort & Inspection: normal respiratory effort and able to speak in complete sentences Auscultation: clear to auscultation bilaterally Cardio Rate: regular rate Rhythm: regular rhythm GI Auscultation: hypoactive bowel sounds Other: Dressings are clean dry and intact. I did not take them down this morning. Drain is mostly serous. Bowel sounds are hypoactive. She is not passing any gas. Extrem Other: No redness/swelling/calf pain Objective Last Vital Signs Temp 36.0 C L 02/22/21 20:05 Pulse 73 02/22/21 20:05 Resp 20 02/22/21 20:05 BP 109/71 02/22/21 20:05 Pulse Ox 95 02/22/21 20:05 Laboratory Results - last 24 hr 02/22/21 02/22/21 06:52 06:52 WBC 15.57 H RBC 4.35 Hgb 13.1 Hct 39.7 MCV 91.3 MCH 30.1 MCHC 33.0 RDW 13.3 Plt Count 262 MPV 8.9 Immature Gran % 0.3 Neutrophils % 84.9 Lymphocytes % 3.1 Monocytes % 11.6 Eosinophils % 0.0 Basophils % 0.1 Nucleated RBC % 0 Absolute Neutrophils 13.22 H Absolute Lymphocytes 0.48 L Absolute Monocytes 1.81 H Absolute Eosinophils 0.00 Absolute Basophils 0.02 RBC Morphology Normal Sodium 138 Potassium 3.8 Chloride 105 Carbon Dioxide 18.2 L Anion Gap 14.8 H BUN 7 Creatinine 0.7 Estimated GFR/1.73 m2 >= 60.00 Glucose 119 H Calcium 8.5 Total Bilirubin 1.0 AST 21 ALT 27 Alkaline Phosphatase 52 C-Reactive Protein 13.60 H Total Protein 6.7 Albumin 3.1 L
[2021-02-23] MEDS: HYDROmorphone 2 MG/ML VIAL 0.4 MG IVP ×3 (01:01→18:04)
[2021-02-23] MEDS: traMADol 50 MG TAB PO ×2 (01:02→12:41)
[2021-02-23] MEDS: Normal Saline Flush 10 ML SYR IVP ×6 (01:02→21:12)
[2021-02-23] MEDS: Ketorolac 15 MG/ML VIAL IVP ×4 (02:40→21:10)
[2021-02-23] MEDS: ACETAMINOPHEN 1,000 MG/100 ML BTL 400 MG IVPB ×4 (02:40→23:00)
[2021-02-23] MEDS: Normal Saline 1,000 ML 125 ML IV ×2 (02:41→16:02)
[2021-02-23 03:01] VITALS: BP 102/67; PULSE 84; RESP 18; TEMP 36.8; O2SAT 93
[2021-02-23] MEDS: PIPERACILLIN/TAZO 4.5 GM in Normal Saline 100 ML IVPB ×3 (05:01→23:03)
[2021-02-23] MEDS: Pantoprazole 40 MG VIAL IVP (06:13)
[2021-02-23 06:53] LABS: Abs Immature Grans 0.07 10^3/uL (0.0-0.06); Absolute Basophil Count 0.04 10^3/uL (0.0-0.2); Absolute Eosinophil Count 0.03 10^3/uL (0.0-0.7); Absolute Lymphocyte Count 1.37 10^3/uL (1.2-3.4); Basophils % 0.3; Eosinophils % 0.2; HCT 32.9 % (36.0-46.0); Immature Grans % 0.5; Lymphocytes % 9.8; MCH 30.3 pg (27.0-33.0); MCHC 33.4 % (32.0-36.0); MCV 90.6 fL (80-95); Neutrophils % 76.2; Nucleated RBC 0 %; Platelet Count 258 10^3/uL (130-400); RBC 3.63 10^6/uL (3.93-5.22); RDW 13.6 % (11.7-14.6); RDW-SD 45.1 fL; WBC 13.96 10^3/uL (4.4-10.8)
[2021-02-23 06:56] LABS: Absolute Monocyte Count 1.81 10^3/uL (0.1-0.8); Absolute Neutrophil Count 10.64 10^3/uL (1.2-6.7)
[2021-02-23 07:10] LABS: ALT 19 U/L (14-59); AST 21 U/L (15-37); Albumin 2.2 g/dL (3.4-5.0); Alkaline Phosphatase 44 U/L (46-116); Anion Gap 10.2 mmol/L (3-11); BUN 10 mg/dL (7-18); Bilirubin, Total 1.1 mg/dL (0.2-1.0); CO2 24.8 mmol/L (21.0-32.0); CREATININE 0.8 mg/dL (0.55-1.02); Chloride 106 mmol/L (98-107); Glucose 91 mg/dL (74-106); Potassium 3.7 mmol/L (3.5-5.1); Sodium 141 mmol/L (136-145); Total Protein 5.6 g/dL (6.4-8.2)
[2021-02-23 07:19] LABS: C-Reactive Protein > 25.00 mg/dL (0.0-0.3)
[2021-02-23 07:53] VITALS: BP 94/61; PULSE 78; RESP 17; TEMP 36.6; O2SAT 97
[2021-02-23] MEDS: buPROPion-CR 150 MG TABCR 450 MG PO (08:09)
[2021-02-23] MEDS: Docusate Sodium 100 MG CAP PO ×3 (08:09→21:11)
--- NOTE | 2021-02-23 09:34 | W.PM.PROGNOT ---
Date of Service Date of service: 02/23/21 Time of Service: 09:34 Assessment and Plan Assessment and plan (1) Ruptured suppurative appendicitis: Status: Acute Assessment and plan: POD#2 S/p open appendectomy for ruptured appendix. Patient started passing gas today and we were able to remove her NG tube. Start clear liquids in a.m. -She is on Protonix for chronic reflux -She is on Lovenox for DVT prophylaxis/SCD/WALK -Continue incentive spirometry walking for pulmonary toilet Antibiotics: Zosyn. Day 2 Bio-K for GI prophylaxis -Patient will need home wound VAC paperwork completed. -Resumption of patient's home Wellbutrin -Discussed with patient that she cannot fly for at least 2 weeks. Return to work will be determined at clinic appointment Subjective Subjective Interval history since last seen: Pt is doing well. no headaches. No CP or SOB. no productive cough. no dysuria. no leg pain or swelling. Patient had no bowel sounds this a.m. She has been up walking extensively this afternoon. She started passing gas and did remove her own NG tube. She is been tolerating ice and water. She had a sore throat from the NG tube. She has no productive cough. She has no shortness of breath. Her catheter is out. She has been able to urinate and has no dysuria. She has no leg pain/ swelling. Exam Narrative Exam Narrative: PHYSICAL EXAM GENERAL APPEARANCE: Alert, healthy appearance, oriented, in no acute distress SKIN: No rashes. No breakdown HYDRATION: Well hydrated HEAD, EYES, EARS, NECK, THROAT: Head is normocephalic, pupils equal, round, reactive to light and accommodation, ocular movement intact, sclera clear and no jaundice. Dentition intact. No sore throat. No jaw pain. No thrush NECK: Supple, Trachea midline. No JVD. LUNGS: normal respiration/nl chest excursion. Clear to auscultation B/l no R/R/W HEART: Regular rate and rhythm, EXTREMITY: No edema or cyanosis no leg pain, redness, swelling. No IV infiltration ABDOMEN: her laprascopic Incisions are clean dry and intact. Her abdominal incision was left open. Wound VAC was placed. Wound. Wound edges are pink and healthy. No sign of infection. Serous drainage only. NEURO: no focal neuro deficits. Objective Last Vital Signs Temp 36.6 C 02/23/21 07:53 Pulse 78 02/23/21 07:53 Resp 17 02/23/21 07:53 BP 94/61 L 02/23/21 07:53 Pulse Ox 97 02/23/21 07:53 Laboratory Results - last 24 hr 02/23/21 02/23/21 02/23/21 06:30 06:30 06:30 WBC 13.96 H RBC 3.63 L Hgb 11.0 L D Hct 32.9 L MCV 90.6 MCH 30.3 MCHC 33.4 RDW 13.6 Plt Count 258 MPV 9.0 Immature Gran % 0.5 Neutrophils % 76.2 Lymphocytes % 9.8 Monocytes % 13.0 Eosinophils % 0.2 Basophils % 0.3 Nucleated RBC % 0 Absolute Neutrophils 10.64 H Absolute Lymphocytes 1.37 Absolute Monocytes 1.81 H Absolute Eosinophils 0.03 Absolute Basophils 0.04 Sodium 141 Potassium 3.7 Chloride 106 Carbon Dioxide 24.8 Anion Gap 10.2 BUN 10 Creatinine 0.8 Estimated GFR/1.73 m2 >= 60.00 Glucose 91 Calcium 8.0 L Total Bilirubin 1.1 H AST 21 ALT 19 Alkaline Phosphatase 44 L C-Reactive Protein > 25.00 H Total Protein 5.6 L Albumin 2.2 L
--- NOTE | 2021-02-23 12:52 | W.PM.PROGNOT ---
Date of Service Date of service: 02/23/21 Time of Service: 07:30 Assessment and Plan Assessment and plan (1) Anxiety: Status: Chronic (2) Ruptured suppurative appendicitis: Status: Acute Assessment and plan: POD #2 Status post open appendectomy for ruptured appendix. Continue NPO NG tube in place with bile colored drainage. Minimal output since 0 last night. Denies nausea and vomiting. Incisions are dressed, awaiting wound vac for LLQ incision site. AYANA drain in place with serosanginous drainage. Sanders in place with Zuly colored urine. Once she is able to increase her ambulation sanders can be d/c. Continue Zosyn Pulmonary toilet and GI prophylaxis (3) Asthma: Status: Chronic Subjective Subjective Interval history since last seen: Patient reports she is feeling better today. Some discomfort with mobility. She denies any fevers or chills at this time. Exam Const General: cooperative and comfortable Orientation: alert and oriented x3 Resp Effort & Inspection: normal respiratory effort, no audible wheezes and no cough GI Other: NG tube in place with bile colored drainage AYANA drain in abdomen- serosanginous drainage noted. RLQ incision open with bedadine pledges noted. Covered with ABD and tape. Incisions are clean, mild ecchymosis around the umbilical incision. Other: Sanders in place with dark zuly colored urine. Objective Last Vital Signs Temp 36.6 C 02/23/21 07:53 Pulse 78 02/23/21 07:53 Resp 17 02/23/21 07:53 BP 94/61 L 02/23/21 07:53 Pulse Ox 97 02/23/21 07:53 Laboratory Results - last 24 hr 02/23/21 02/23/21 02/23/21 06:30 06:30 06:30 WBC 13.96 H RBC 3.63 L Hgb 11.0 L D Hct 32.9 L MCV 90.6 MCH 30.3 MCHC 33.4 RDW 13.6 Plt Count 258 MPV 9.0 Immature Gran % 0.5 Neutrophils % 76.2 Lymphocytes % 9.8 Monocytes % 13.0 Eosinophils % 0.2 Basophils % 0.3 Nucleated RBC % 0 Absolute Neutrophils 10.64 H Absolute Lymphocytes 1.37 Absolute Monocytes 1.81 H Absolute Eosinophils 0.03 Absolute Basophils 0.04 Sodium 141 Potassium 3.7 Chloride 106 Carbon Dioxide 24.8 Anion Gap 10.2 BUN 10 Creatinine 0.8 Estimated GFR/1.73 m2 >= 60.00 Glucose 91 Calcium 8.0 L Total Bilirubin 1.1 H AST 21 ALT 19 Alkaline Phosphatase 44 L C-Reactive Protein > 25.00 H Total Protein 5.6 L Albumin 2.2 L
[2021-02-23] MEDS: Enoxaparin 40 MG/0.4 ML SYR SC (14:59)
[2021-02-23 15:30] VITALS: BP 107/66; PULSE 96; RESP 17; TEMP 37.4; O2SAT 97
--- NOTE | 2021-02-23 15:53 | PDOC.CMPRO ---
Care Management Progress Note S/O: Chanel continues to be closely monitored and treated post surgically; NG tube placed, remains NPO. Wound vac ordered, sanders in place until she's able to increase ambulation, per provider. CM continues to follow. A: 31 year old female admitted to [facility] 02/21/21 for ruptured appendix P: Chanel will return home when ready per MD. She will follow up with her PCP and plan of care as prescribed. She will transport via private vehicle with family.
[2021-02-23 20:27] VITALS: BP 117/66; PULSE 85; RESP 20; TEMP 36.8; O2SAT 98
[2021-02-24] VITALS (7 sets, daily range): BP systolic 92–134; BP diastolic 58–81; PULSE 60–86; RESP 12–20; TEMP 36.3–37.8; O2SAT 96–99
[2021-02-24] MEDS: Ketorolac 15 MG/ML VIAL IVP ×4 (01:36→19:29)
[2021-02-24] MEDS: Normal Saline 1,000 ML 125 ML IV ×3 (01:36→22:53)
[2021-02-24] MEDS: HYDROmorphone 2 MG/ML VIAL 0.4 MG IVP (01:45)
[2021-02-24] MEDS: Normal Saline Flush 10 ML SYR IVP ×5 (01:46→19:29)
[2021-02-24] MEDS: Pantoprazole 40 MG VIAL IVP (06:27)
[2021-02-24] MEDS: ACETAMINOPHEN 1,000 MG/100 ML BTL 400 MG IVPB ×3 (06:28→17:39)
[2021-02-24] MEDS: PIPERACILLIN/TAZO 4.5 GM in Normal Saline 100 ML IVPB ×3 (06:29→22:53)
[2021-02-24 07:29] LABS: HCT 30.9 % (36.0-46.0); HGB 10.3 g/dL (11.2-15.7); MCH 30.5 pg (27.0-33.0); MCHC 33.3 % (32.0-36.0); MCV 91.4 fL (80-95); MPV 9.1 fL (8.0-11.0); Nucleated RBC 0 %; Platelet Count 265 10^3/uL (130-400); RBC 3.38 10^6/uL (3.93-5.22); RDW 13.7 % (11.7-14.6); RDW-SD 46.3 fL; WBC 12.69 10^3/uL (4.4-10.8)
[2021-02-24 07:46] LABS: ALT 18 U/L (14-59); AST 22 U/L (15-37); Alkaline Phosphatase 52 U/L (46-116); Anion Gap 10.1 mmol/L (3-11); BUN 10 mg/dL (7-18); Bilirubin, Total 1.4 mg/dL (0.2-1.0); CO2 21.9 mmol/L (21.0-32.0); CREATININE 0.8 mg/dL (0.55-1.02); Calcium 8.1 mg/dL (8.5-10.1); Chloride 105 mmol/L (98-107); Glucose 77 mg/dL (74-106); Potassium 3.4 mmol/L (3.5-5.1); Sodium 137 mmol/L (136-145); Total Protein 5.7 g/dL (6.4-8.2)
[2021-02-24 07:55] LABS: C-Reactive Protein > 25.00 mg/dL (0.0-0.3)
[2021-02-24 07:59] LABS: Absolute Eosinophil Count 0.13 10^3/uL (0.0-0.7); Absolute Lymphocyte Count 0.76 10^3/uL (1.2-3.4); Absolute Monocyte Count 1.78 10^3/uL (0.1-0.8); Absolute Neutrophil Count 10.03 10^3/uL (1.2-6.7); Bands % 2; Diff Comment Manual Differential; RBC Morphology Normal
[2021-02-24] MEDS: Docusate Sodium 100 MG CAP PO ×3 (09:01→19:29)
[2021-02-24] MEDS: buPROPion-CR 150 MG TABCR 450 MG PO (09:06)
--- NOTE | 2021-02-24 12:54 | PGE_ITS ---
Date of Service Date of service: 02/24/21 Time of Service: 12:58 Assessment and Plan Assessment and plan (1) Ruptured suppurative appendicitis: Status: Acute Assessment and plan: POD#3 S/p open appendectomy for ruptured appendix. Regular diet this afternoon -She is on Protonix for chronic reflux -She is on Lovenox for DVT prophylaxis/SCD/WALK -Continue incentive spirometry walking for pulmonary toilet Antibiotics: Zosyn. Day 3 Bio-K for GI prophylaxis -Patient will need home wound VAC paperwork completed. -Resumption of patient's home Wellbutrin -Discussed with patient that she cannot fly for at least 2 weeks. Return to work will be determined at clinic appointment -Will likely discharge home tomorrow, after one more day of antibiotics Subjective Subjective Interval history since last seen: Pt is doing well. no headaches. No CP or SOB. no productive cough. no dysuria. no leg pain or swelling. She has been up walking extensively this afternoon. She started passing gas and did remove her own NG tubeyesterday. She is been tolerating clear liquids. She had a sore throat from the NG tube. She has no productive cough. She has no shortness of breath. Her catheter is out. She has been able to urinate and has no dysuria. She has no leg pain/ swelling. Exam Narrative Exam Narrative: PHYSICAL EXAM GENERAL APPEARANCE: Alert, healthy appearance, oriented, in no acute distress SKIN: No rashes. No breakdown HYDRATION: Well hydrated HEAD, EYES, EARS, NECK, THROAT: Head is normocephalic, pupils equal, round, reactive to light and accommodation, ocular movement intact, sclera clear and no jaundice. Dentition intact. No sore throat. No jaw pain. No thrush NECK: Supple, Trachea midline. No JVD. LUNGS: normal respiration/nl chest excursion. Clear to auscultation B/l no R/R/W HEART: Regular rate and rhythm, EXTREMITY: No edema or cyanosis no leg pain, redness, swelling. No IV infiltration ABDOMEN: her laprascopic Incisions are clean dry and intact. Her abdominal incision was left open. Wound VAC was placed. Wound. Wound edges are pink and healthy. No sign of infection. Serous drainage only. NEURO: no focal neuro deficits. Const General: cooperative, comfortable, no acute distress, well developed and well groomed Nutritional Appearance: average body habitus and well nourished Orientation: alert, awake and oriented x3 [facility] Head: normal to inspection, normocephalic and atraumatic Ears: hearing grossly normal bilaterally and external ears normal General nose exam: external nose normal Face and sinus: normal facial exam and sinuses nontender Mouth: oral mucosae normal, lip normal, tongue normal and moist mucous membranes Teeth and gingiva: dentition normal Eyes General: appearance normal, both eyes and all related structures Conjunctivae: conjunctivae normal Sclera: sclerae normal Pupils: PERRL Neck Neck: normal visual inspection and full ROM Chest Chest: normal inspection of the chest Resp Effort & Inspection: normal respiratory effort, able to speak in complete sentences, no audible wheezes, no cough, no nasal flaring, not tachypneic and no use of accessory muscles Auscultation: clear to auscultation bilaterally, no rales, no rhonchi and no wheezes Cardio Jugular venous pressure: no JVD Rate: regular rate Rhythm: regular rhythm GI Inspection: normal to inspection, no edema and non-distended Palpation: soft, no hernias, no masses, tender in the RLQ and No ascites Auscultation: normal bowel sounds and hypoactive bowel sounds Skin General skin exam: no rashes or lesions noted Trauma: no lacerations or abrasions Neuro General: patient alert, patient oriented x3, oriented, gait normal, moves all extremities, no focal motor deficits and CN's II-XI intact bilaterally Cognition: normal cognition Speech: speech normal Gait: normal gait Motor: muscle tone normal throughout Extrem General: normal to inspection, full ROM and no clubbing, cyanosis or edema Psych Appearance: grossly normal and well kempt Mental Status: mental status grossly normal Speech and Movement: speech and movement normal Affect: normal affect Objective Last Vital Signs Temp 97.9 F 02/24/21 11:44 Pulse 82 02/24/21 11:44 Resp 14 02/24/21 11:44 BP 92/58 L 02/24/21 11:44 Pulse Ox 99 02/24/21 11:44 Laboratory Results - last 24 hr 02/24/21 02/24/21 02/24/21 07:05 07:05 07:05 WBC 12.69 H RBC 3.38 L Hgb 10.3 L Hct 30.9 L MCV 91.4 MCH 30.5 MCHC 33.3 RDW 13.7 Plt Count 265 MPV 9.1 Immature Gran % 0.0 Neutrophils % 77.0 Band Neutrophils % 2 Lymphocytes % 6.0 Monocytes % 14.0 Eosinophils % 1.0 Basophils % 0.0 Nucleated RBC % 0 Absolute Neutrophils 10.03 H Absolute Lymphocytes 0.76 L Absolute Monocytes 1.78 H Absolute Eosinophils 0.13 Absolute Basophils 0.00 RBC Morphology Normal Sodium 137 Potassium 3.4 L Chloride 105 Carbon Dioxide 21.9 Anion Gap 10.1 BUN 10 Creatinine 0.8 Estimated GFR/1.73 m2 >= 60.00 Glucose 77 Calcium 8.1 L Total Bilirubin 1.4 H AST 22 ALT 18 Alkaline Phosphatase 52 C-Reactive Protein > 25.00 H Total Protein 5.7 L Albumin 2.0 L
[2021-02-24] MEDS: Enoxaparin 40 MG/0.4 ML SYR SC (14:32)
--- NOTE | 2021-02-24 16:17 | CMPROGNOTE_ITS ---
- If Service Date Differs Date of service: 02/24/21 Time of Service: 16:17 Care Management Progress Note S/O: Chanel was up walking around in her room when CM met with her. 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 She stated that she is grateful that she is near her home, and not in a hospital in [place]. She reported that per MD, she will likely be ready for discharge tomorrow, after another 24 hrs on IV antibiotics. She will be out of work for at least 2 weeks, as she won't be able to fly for that amount of time. She may require a note from [facility] stating the dates of her hospitalization. CM will continue to follow. A: 31 year old female admitted to [facility] 02/21/21 for ruptured appendix P: Chanel will return home when ready per MD. She will follow up with her PCP and plan of care as prescribed. She will transport via private vehicle with family.
[2021-02-24] MEDS: traMADol 50 MG TAB PO (16:19)
[2021-02-25] MEDS: HYDROmorphone 2 MG/ML VIAL 0.4 MG IVP (01:13)
[2021-02-25] MEDS: ACETAMINOPHEN 1,000 MG/100 ML BTL 400 MG IVPB ×2 (01:13→06:16)
[2021-02-25] MEDS: Normal Saline Flush 10 ML SYR IVP ×3 (01:13→08:02)
[2021-02-25] MEDS: Ketorolac 15 MG/ML VIAL IVP ×2 (01:13→08:01)
[2021-02-25 03:44] VITALS: BP 106/64; PULSE 62; RESP 18; TEMP 36.6; O2SAT 97
[2021-02-25] MEDS: PIPERACILLIN/TAZO 4.5 GM in Normal Saline 100 ML IVPB (06:15)
[2021-02-25] MEDS: Pantoprazole 40 MG VIAL IVP (06:16)
[2021-02-25 07:41] VITALS: BP 117/75; PULSE 84; RESP 19; TEMP 35.7; O2SAT 96
[2021-02-25] MEDS: buPROPion-XL 150 MG TABCR 450 MG PO (08:02)
[2021-02-25] MEDS: Docusate Sodium 100 MG CAP PO (08:02)
--- NOTE | 2021-02-25 09:26 | W.PM.PROGNOT ---
Date of Service Date of service: 02/25/21 Time of Service: 09:26 Assessment and Plan Assessment and plan (1) Ruptured suppurative appendicitis: Status: Acute Assessment and plan: POD#4 S/p open appendectomy for ruptured appendix. Regular diet AYANA drain removed. Wound vac in place and will remain. She declines services, stating she feels comfortable handling the wound vac herself. Pain is well controlled with tylenol and toradol during the day time. She will continue a 2 week course of antibiotics upon d/c Work note was provided with restrictions upon her return of no pushing, pulling or lifting greater than 15 pounds x 6 weeks. She will have a follow up with Dr. Anderson next 03/04/21 Subjective Subjective Interval history since last seen: Patient reports she continues to feel better. She states that she has not had much of an appetite. Denies any fevers or chills. Exam Const General: cooperative, healthy appearing and comfortable Orientation: alert and oriented x3 Resp Effort & Inspection: normal respiratory effort, no audible wheezes and no cough GI Palpation: soft, no guarding and tender in the RLQ Other: AYANA Almas in place with serous drainage. Wound vac in place. Objective Last Vital Signs Temp 35.7 C L 02/25/21 07:41 Pulse 84 02/25/21 07:41 Resp 19 02/25/21 07:41 BP 117/75 02/25/21 07:41 Pulse Ox 96 02/25/21 07:41
--- NOTE | 2021-02-25 09:33 | DSE_ITS ---
Date of service: 02/25/21 Time of Service: 09:33 DS: Diagnosis Discharge Diagnosis (1) Ruptured suppurative appendicitis: Status: Acute Discharge Plan Disposition Patient Disposition: HOME Condition: Improving Discharge Details Reason For Visit: RUPTURED APPENDIX Admit Date/Time: 02/21/21 21:38 Admit Provider: Juli Anderson Attending Provider: Juli Anderson Primary Care Provider: Yuliet Velarde Hospital Course Hospital Course: 31 y/o female whom underwent a laparoscopic appendectomy which was converted to open on 02/21/21 for ruptured appendix. She remained in the hospital for an additional 4 days for pain control, IV Zosyn and wound care. Wound vac dressing in place for the laparotomy incision site. AYANA drain had minimal serous output and was removed today 02/25/21. She has not had any fevers or chills. Pain has been well controlled. She will d/c with Wound Vac. She declined services. She feels comfortable managing and problem shooting the device. She will need to continue a 2 week course of Augmentin upon d/c. She will also receive a prescription for hydrcodone for pain. She may also continue with use of Tylenol and Ibuprofen for pain during the day time. She will follow up with Dr. Anderson in the [facility] on 03/04/21. Work Letter and Work Restrictions provided. No lifting, pushing or pulling g reater than 15 pounds x 6 weeks. Home Meds and New Rx's Prescriptions: New hydrocodone-acetaminophen 5-325 mg tablet 1 tab PO Q4H PRN (Reason: pain) Qty: 20 RF: 0 amoxicillin-pot clavulanate [Augmentin] 875-125 mg tablet 1 tab PO BID 14 Days Qty: 28 RF: 0 Continued Mirena 20 mcg/24 hours (6 yrs) 52 mg Intrauterine Device 1 device INTRAUTERINE ONCE RF: 0 bupropion HCl 150 mg tablet extended release 24 hr 450 mg PO DAILY RF: 0 Discharge Instructions Instructions: Appendicitis (GEN) Additional Instructions: Reviewed and discussed signs and symptoms of infection to include fevers, chills, sweats, redness, soreness or swelling in the area, new onset pain or new onset/change in drainage. Patient verbalized understanding and will call this office, their PCP or go to the ER if any of these symptoms occur. Referrals: Juli Anderson DO [OSTEOPATHIC DOCTOR] - Activity:: Activity as Tolerated Equipment/Supplies:: Wound Vac Diet:: As Tolerated Discharge Orders Discharge Orders: Discharge Order (Routine); Ordered 02/25/21 Ordered By: Sridevi Hill DS: Summary Time Spent with Patient providing and/or coordinating discharge services: Less than 30 minutes Status at Discharge Functional status at discharge: independent ambulation Overall status at discharge: patient is back to baseline Mental Status: mental status grossly normal Speech and Movement: speech and movement normal Mood: congruent mood Affect: normal affect Exam Psych Mental Status: mental status grossly normal Speech and Movement: speech and movement normal Mood: congruent mood Affect: normal affect DS: Data Vitals/I&O Vitals and I&O: Vital Signs Temperature 35.7 C L 02/25/21 07:41 Temperature Source Tympanic 02/25/21 07:41 Pulse 84 02/25/21 07:41 Pulse Rhythm Regular 02/25/21 02:30 Respiratory Rate 19 02/25/21 07:41 Respiratory Effort Non-Labored 02/25/21 02:30 Respiratory Depth Normal 02/25/21 02:30 Respiratory Pattern Normal 02/25/21 02:30 Blood Pressure 117/75 02/25/21 07:41 Blood Pressure Position Sitting 02/21/21 17:23 Pulse Oximetry 96 02/25/21 07:41 Oxygen Delivery Method Room Air 02/25/21 07:41 Oxygen Flow Rate 0 02/25/21 07:41 Pain Level 0 02/25/21 03:44 Comment 02/23/21 07:53 Intake & Output 02/24/21 02/25/21 02/25/21 18:59 06:59 18:59 Intake Total 1400 / 2635 1235 / 2635 Output Total 580 / 2230 1650 / 2230 Balance 820 / 405 -415 / 405 Intake: IV 1400 / 2600 1200 / 2600 Injectate 35 / 35 Lower Medial Abdomen 35 / 35 Output: Drainage 30 / 30 Lower Medial Abdomen 30 / 30 Urine 550 / 2200 1650 / 2200 Other: Urine Color Yellow Urine Appearance Clear Clear Comment Per patient report. Voiding Methods Toilet Toilet PFS Surgical History (Updated 06/13/18 @ 13:21 by Valerie Guevara RN) H/O arthroscopic knee surgery History of laparoscopic cholecystectomy Right knee Social History (Updated 06/13/18 @ 13:24 by Valerie Guevara RN) Smoking/Tobacco Use Status: Never Smoking risk assessment performed?: Yes Alcohol Intake: current Alcohol Intake frequency: a few times a month Alcohol type: beer, wine and hard liquor Drug use: Occasionally Substance use type: marijuana Household members: none Number of Children: 0 current occupation: Nurse [employer] Duration: 45-60 minutes/day Frequency: 5-6 times per week Special lashawn needs: No Agree to transfusion: No Do you feel safe at home: Yes Victim of physical abuse: No Victim of emotional abuse: No Victim of sexual abuse: No Female Reproductive History Menstrual control method: progestin IUCD History History 0 Para Hx # Term Pregnancies Multiple births Hx # Pregnancies Ectopic pregnancies AB induced Hx Number of Living Children AB spontaneous
--- NOTE | 2021-02-25 10:37 | PDOC.CMDIS ---
- If Service Date Differs Date of service: 02/25/21 Time of Service: 10:37 LACE Index Scoring Tool - Questions: Length of Stay (in days): 4 - 6 Acuity (Admit via E.D.?): Yes E.D. Visits: 1 - Answers: Total Score: 8 Risk of Readmission: Low Risk Care Management Discharge Reason for Hospitalization: Ruptured Appendix Discharge Plan: Chanel will return home when ready per MD. She will follow up with her PCP and plan of care as prescribed. She will transport via private vehicle with family. Patient/Family Education Needs: Review discharge instructions, discuss Ask Me Three.
== END 2021-02-25 11:05 | disposition home or self-care (01) | DRG 340 ==
LOC: ER 21:50 → DSU 22:05 → MS 02-22 03:10
PROVIDERS: Admitting Provider Surgery; Emergency Provider Physician Assistant; PCP General Practice; Visit Provider Surgery
PROC: 0DTJ4ZZ Resection of Appendix, Percutaneous Endoscopic Approach (ICD-10-PCS; CPT 44970; principal; 2021-02-21 20:45)
DX: K35.32 Acute appendicitis with perforation, localized peritonitis, and gangrene, without abscess (principal); J45.909 Unspecified asthma, uncomplicated; Z20.822 Contact with and (suspected) exposure to COVID-19; F41.9 Anxiety disorder, unspecified
CPT/HCPCS: 44960; 36415; 80053; 81025; 83690; 87635; 96361; 96365; 96367; 99285; J1650; 74177; 81003; 81015; 85025; 86140; 87086; 88304; 94667; J0131; J1100; J1200; J1885; J2001; J2405; J2543; J2704; J3475; J3490

== ENCOUNTER 2021-02-27 09:05 | Emergency (ER) | payer BC, SELFPAY ==
[2021-02-27 09:05] VITALS: BP 122/82; PULSE 90; RESP 16; TEMP 36.7; O2SAT 100
--- NOTE | 2021-02-27 09:15 | RT.EKG_ITS ---
APPROVED REPORT Exam: Resting ECG Reason for Exam: shortness of breath post op Patient Location: E HR:81 bpm ECG Measurements Heart Rate 81 AXIS OR 156 P 37 QRSd 91 QRS 57 QT 360 T 2 QTc 418 Conclusion Sinus rhythm...normal P axis, V-rate 60- 99
--- OUTSIDE RECORDS SUMMARY | 2021-02-27 09:29 | XMS_ITS ---
:1990 Author Care Team Providers Name Role Phone Maycol Velarde Primary Care Provider Unavailable Allergies None recorded. Medications Name Status Start Date Stop Date ? ? azithromycin 250 mg tablet Completed ? 05/15 benzonatate 200 mg capsule Completed ? 05/15 betamethasone, augmented 0.05 % topical cream Completed 10/10/2012 1 (one) Cream: oncce or twice daily as needed for skin redness, scaling, and itch bupropion HCl XL 150 mg 24 hr tablet, extended release Active ? Not available 1 IN AM AND 2 AT NIGHT FOR TOTAL OF 450MGS IN 24 HOUR bupropion HCl XL 300 mg 24 hr tablet, extended release Completed ? 10/16/2019 Take 1 tablet every day by oral route for 90 days. Cyclessa (28) 0.1 mg/0.125 mg/0.15 mg-25 mcg tablet Completed 10/10/2012 12/13/2013 1 Tablet: as directed ketorolac 10 mg tablet Active ? Not avail able levalbuterol HFA 45 mcg/actuation Active ? Not available aerosol inhaler lorazepam 0.5 mg tablet Completed ? 10/28/19 21 ondansetron 4 mg disintegrating Active ? Not available tablet sertraline 50 mg tablet Completed ? 10/28/19 21 Take 1 tablet every day by oral route for 30 days. sulfamethoxazole 800 mg-trimethoprim 160 mg tablet Completed ? 10/28/2020 1 ANBLET DAILY 10 DAYS. Ventolin HFA 90 mcg/actuation aerosol inhaler Completed 12/13/2013 2 (two) Puff(s): Every 4 to 6 hours as needed zolpidem 5 mg tablet Active ? Not availab le Problems Name Status Onset Date Source ? Eczema Herpeticum Active ? History Insomnia Active ? History Asthma Active ? History Unstable Knee Active ? History Chronic Instability of Knee Active ? Hist ory Lack of Energy Active ? History Food and Drink Intake - Finding Active ? History Allergic Disposition Active ? History Contraception Care Management Active ? Hi story Adult Health Examination Unknown ? History Screening for Cardiovascular System Disease Unknown ? History At Risk - Finding Active ? History Procedure by Method Unknown ? History Respiratory Finding Unknown ? History Pain in Right Knee Active ? History Evaluation Procedure Unknown ? History Procedures Date Name Performed by ? 09/19/2005 Cholecystectomy Information not avai lable Results Lab Results Date Name Specimen Result Interpretation Description Value Range Status Address ? 07/28/2017 Venipuncture BLD ? Venpn* ? ? Final [facility] Hospital L ab (Internal) : [address] 07/28/2017 BMP, Serum or S ? g/r 99 74-1 Final [facility] Plasma mg/dL 06 Hospital L ab mg/d (Internal) : L [address] ? ? S ? Bun 13 7-17 Final [facility] try mg/dL mg/d Hospital L ab L (Internal) : [address] ? ? S ? Crea 0.70 0.52 [facility] try mg/dL -1.0 Hospital L ab 4 (Internal) : mg/d [address] ? ? S ? Ca 9.2 8.4- Final [facility] try mg/dL 10.2 Hospital L ab mg/d (Internal) : L [address] ? ? S ? Na 141 137- Final [facility] try mmol/L 145 Hospital L ab mmol (Internal) : /L [address] ? ? S ? K 4.2 3.5- Final [facility] try mmol/L 5.1 Hospital L ab mmol (Internal) : /L [address] ? ? S ? Cl 105 98-1 Final [facility] try mmol/L 07 Hospital L ab mmol (Internal) : /L [address] ? ? S ? Tco2 27.0 22.0 Final [facility] try mmol/L -30. Hospital L ab 0 (Internal) : mmol [address], /L Nelly 07/28/2017 Lipid Panel, S ? Chol 137 50-2 Final [facility] Serum mg/dL 00 Hospital L ab mg/d (Internal) : L [address] ? ? S ? Trig 105 10-1 Final [facility] try mg/dL 50 Hospital L ab mg/d (Internal) : L [address] ? ? S Low Hdl 37 40-6 Final [facility] try mg/dL 0 Hospital L ab mg/d (Internal) : L [address] ? ? S ? Ldl 79 0-13 Final [facility] try mg/dL 0 Hospital L ab mg/d (Internal) : L [address] Past Encounters 10/28/2020 Fatigue; Multiple Joint Pain; Depressive Disorder; Overweight Joey Velarde, DO: [address] [facility], [facility] [address], Ph. Social History None recorded. Vaccine List Vaccine Type DTaP 1989 1989 1989 10/19/1990 02/16/1994 04/11/2003 Hep B, adolescent or pediatric 04/14/2000 05/19/2000 12/01/2000 Hib (PRP-T) 05/15/1990 influenza, injectable, quadrivalent 07/22/2018 influenza, seasonal, injectable 07/07/2000 08/20/2002 07/03/2003 06/20/2017?0.5 mL influenza, seasonal, injectable, preserv ative free 06/19/2014 06/23/2016?0.5 mL meningococcal MCV4P 03/09/2007 MMR 05/15/1990 06/26/1998 OPV 1989 1989 1989 10/19/1990 02/16/1994 varicella 02/11/1999 03/09/2007 Plan of Care Reminders Provider Appointments None ? ? recorded. Lab None ? ? recorded. Referral None ? ? recorded. Procedures None ? ? recorded. Surgeries None ? ? recorded. Imaging None ? ? recorded. Vitals 05/15/2019 09:00AM Follow Up 20 Height Weight BMI Blood Pressure 165.1 cm 125.19 kg 45.9 kg/m2 124/84 mm[Hg] 08/22/2018 07:40AM CPE 20 Height Weight BMI Blood Pressure 165.1 cm 118.39 kg 43.4 kg/m2 122/82 mm[Hg] 07/27/2017 Height Weight Blood Pressure 165.1 cm 127.01 kg 120/82 mm[Hg] 2016 Height Weight Blood Pressure 165.1 cm 136.53 kg 124/78 mm[Hg] 08/22/2015 Height Weight Blood Pressure 165.1 cm 127.91 kg 118/68 mm[Hg] 07/29/2015 Height Weight Blood Pressure 165.1 cm 127.91 kg 142/92 mm[Hg] 05/20/2015 Height Weight Blood Pressure 165.1 cm 127.91 kg 122/74 mm[Hg] 04/10/2015 Height Weight Blood Pressure 165.1 cm 127.91 kg 126/88 mm[Hg] 12/13/2013 Height Weight Blood Pressure 165.1 cm 115.67 kg 118/72 mm[Hg] 04/04/2013 Weight Blood Pressure 115.21 kg 128/64 mm[Hg] 10/25/2012 Weight Blood Pressure 115.21 kg 120/60 mm[Hg] 09/24/2011 Height Weight 165.1 cm 108.86 kg 09/24/2011 Blood Pressure 130/72 mm[Hg] 05/11/2010 Height Weight Blood Pressure 165.1 cm 114.76 kg 114/84 mm[Hg]
[2021-02-27 09:40] VITALS: PULSE 90; RESP 16; O2SAT 100
[2021-02-27] MEDS: Albuterol 2.5 MG/3 ML INH SOLN VIAL UPD (09:40)
[2021-02-27 09:43] LABS: HCT 34.1 % (36.0-46.0); HGB 11.3 g/dL (11.2-15.7); MCH 29.9 pg (27.0-33.0); MCHC 33.1 % (32.0-36.0); MCV 90.2 fL (80-95); MPV 8.7 fL (8.0-11.0); Nucleated RBC 0 %; Platelet Count 479 10^3/uL (130-400); RBC 3.78 10^6/uL (3.93-5.22); RDW 13.7 % (11.7-14.6); RDW-SD 45.6 fL; WBC 13.86 10^3/uL (4.4-10.8)
--- NOTE | 2021-02-27 09:51 | W.ED.GENAD ---
Discharge Plan Disposition Patient Disposition: HOME Condition: Good Discharge Details Clinical Impression: Atelectasis, Acute hypokalemia Primary Care Provider: Yuliet Velarde ED Provider: Navya Ramey Home Meds and New Rx's Prescriptions: New potassium chloride 20 mEq tablet extended release 20 meq PO DAILY Qty: 5 RF: 0 No Action ondansetron HCl 4 mg tablet 4 mg PO Q8H PRN (Reason: nausea and vomiting) Qty: 14 RF: 0 Mirena 20 mcg/24 hours (6 yrs) 52 mg Intrauterine Device 1 device INTRAUTERINE ONCE RF: 0 bupropion HCl 150 mg tablet extended release 24 hr 450 mg PO DAILY RF: 0 hydrocodone-acetaminophen 5-325 mg tablet 1 tab PO Q4H PRN (Reason: pain) Qty: 20 RF: 0 amoxicillin-pot clavulanate [Augmentin] 875-125 mg tablet 1 tab PO BID 14 Days Qty: 28 RF: 0 Discharge Instructions Additional Instructions: Take your pain medication every 4 hours Ibuprofen and Tylenol for pain control Continue to use your spirometer as you have been doing and return earlier should you have new or worsening complaints Recheck in 24 to 48 hours Discharge Data Discharge Date/Time-TO BE ENTERED AT DEPARTURE: 02/27/21 13:33 Medical Decision Making Patient has mild improvement, she declines additional analgesia, she has Kermit at home which she will use She is instructed to continue to use her incentive spirometer Pleurisy and bilateral small pleural effusions she will follow up with her doctor regarding She was given 40 mEq of potassium and additional potassium for home Encouraged to return immediately should she have new or worsening complaints Troponin and EKG negative for acute pathology Differential Diagnosis Differential Diagnosis: Pulmonary embolism, atelectasis, pneumonia, pleurisy Medical Records Medical records reviewed: Yes I reviewed the patient's medical records. Lab Data Lab results reviewed: Yes I reviewed the patient's lab results. HPI General Mode of arrival: ambulatory. Date/Time Provider Initiated Documentation: 02/27/21 09:06. Limitations to Documentation: no limitations. Information obtained by: patient. HPI Narrative: This 31-year-old female with recent appendectomy which was complicated in nature and has wound VAC in place presents with report shortness of breath and pleuritic chest pain for the past 2 days. She has postoperative approximately 6 days. She actually feels well otherwise and denies any abdominal complaints, nausea, vomiting. She denies any known injuries or history of coagulopathy. Pain is exacerbated with breathing. Pain also reportedly exacerbated in supine position. Feels more comfortable in standing. History of asthma, reports this feels differently. Related Data Home Medications Medication Instructions Recorded Confirmed Mirena 1 device INTRAUTERINE ONCE 02/22/21 02/27/21 bupropion HCl 450 mg PO DAILY 02/24/21 02/27/21 amoxicillin-pot clavulanate 1 tab PO BID 14 Days #28 tab 02/25/21 02/27/21 [Augmentin] hydrocodone-acetaminophen 1 tab PO Q4H PRN #20 tab 02/25/21 02/27/21 ondansetron HCl 4 mg tablet 4 mg PO Q8H PRN #14 tab 02/25/21 02/27/21 potassium chloride 20 meq PO DAILY #5 tab 02/27/21 Previous Rx's Medication Instructions Recorded amoxicillin-pot clavulanate 1 tab PO BID 14 Days #28 tab 02/25/21 [Augmentin] hydrocodone-acetaminophen 1 tab PO Q4H PRN #20 tab 02/25/21 ondansetron HCl 4 mg tablet 4 mg PO Q8H PRN #14 tab 02/25/21 potassium chloride 20 meq PO DAILY #5 tab 02/27/21 Allergies Allergy/AdvReac Type Severity Reaction Status Date / Time ketamine AdvReac Intermediate paradoxical Unverified 02/27/21 09:13 effect General Stated Complaint: Abd Prob DENAE: 3 Review of Systems Narrative: Review of systems obtained x7 aside from indicated in HPI ON LICENSE OF [facility] Surgical History (Updated 06/13/18 @ 13:21 by Valerie Guevara RN) H/O arthroscopic knee surgery History of laparoscopic cholecystectomy Right knee Social History (Updated 06/13/18 @ 13:24 by Valerie Guevara RN) Smoking/Tobacco Use Status: Never Smoking risk assessment performed?: Yes Alcohol Intake: current Alcohol Intake frequency: a few times a month Alcohol type: beer, wine and hard liquor Drug use: Occasionally Substance use type: marijuana Household members: none Number of Children: 0 current occupation: Nurse ER [employer] Duration: 45-60 minutes/day Frequency: 5-6 times per week Special lashawn needs: No Agree to transfusion: No Do you feel safe at home: Yes Victim of physical abuse: No Victim of emotional abuse: No Victim of sexual abuse: No Female Reproductive History Menstrual control method: progestin IUCD History History 0 Para Hx # Term Pregnancies Multiple births Hx # Pregnancies Ectopic pregnancies AB induced Hx Number of Living Children AB spontaneous Exam Const General: cooperative and no acute distress Chest Chest: normal inspection of the chest Resp Effort & Inspection: normal respiratory effort Auscultation: clear to auscultation bilaterally Cardio Rate: regular rate Rhythm: regular rhythm GI Other: Patient with wound VAC in place, no significant abnormal appearance to abdominal wound Nontender abdominal exam Neuro General: patient alert and patient oriented x3 Extrem Other: No calf tenderness or swelling to bilateral lower extremities, neurovascularly intact Course Vital Signs Vital signs: Vital Signs Temperature 36.7 C 02/27/21 09:05 Pulse 90 02/27/21 09:05 Respiratory Rate 16 02/27/21 09:05 Blood Pressure 122/82 02/27/21 09:05 Pulse Oximetry 100 02/27/21 09:05 Temperature 36.7 C 02/27/21 09:05 Temperature Source Skin 02/27/21 09:05 Pulse 90 02/27/21 09:40 Respiratory Rate 16 02/27/21 09:40 Blood Pressure 122/82 02/27/21 09:05 Blood Pressure Position Standing 02/27/21 09:05 Pulse Oximetry 100 02/27/21 09:40 Oxygen Delivery Method Room Air 02/27/21 09:40 Oxygen Flow Rate 0 02/27/21 09:40 Pain Level 8 02/27/21 09:05 Comment worse with sitting or laying 02/27/21 09:05
[2021-02-27 10:03] LABS: Absolute Lymphocyte Count 1.25 10^3/uL (1.2-3.4); Absolute Monocyte Count 1.66 10^3/uL (0.1-0.8); Absolute Neutrophil Count 10.81 10^3/uL (1.2-6.7); Bands % 2; Diff Comment Manual Differential; Metamyelocytes % 1
[2021-02-27 10:04] LABS: RBC Morphology Normal
[2021-02-27 10:29] LABS: ALT 31 U/L (14-59); AST 27 U/L (15-37); Albumin 2.2 g/dL (3.4-5.0); Alkaline Phosphatase 73 U/L (46-116); Anion Gap 10.6 mmol/L (3-11); BUN 7 mg/dL (7-18); Bilirubin, Total 0.5 mg/dL (0.2-1.0); CO2 26.4 mmol/L (21.0-32.0); CREATININE 0.6 mg/dL (0.55-1.02); Chloride 104 mmol/L (98-107); Glucose 98 mg/dL (74-106); Sodium 141 mmol/L (136-145); Total Protein 6.9 g/dL (6.4-8.2)
[2021-02-27 10:31] LABS: Potassium 2.8 mmol/L (3.5-5.1); Troponin I < 0.05 ng/mL (<0.06)
[2021-02-27] MEDS: Potassium Chloride 20 MEQ TABCR 40 MEQ PO (10:38)
[2021-02-27 11:05] LABS: D-Dimer 4389 ng/mlFEU (<500)
[2021-02-27 11:25] VITALS: BP 137/73; PULSE 76; RESP 14; TEMP 36.6; O2SAT 99
--- NOTE | 2021-02-27 11:54 | DI.CT_ITS ---
Exam(s) CT CHEST PE CTA EXAM: CT CHEST PE CTA CLINICAL HISTORY: chest pain, ddimer 4300 post op. TECHNIQUE: Imaging Protocol: Axial CT angiography was performed with multi-slice acquisition and mu lti-planar and/or 3D reconstructions. CONTRAST MATERIAL: Intravenous: Omnipaque 350 Contrast volume:100 ml COMPARISON: No exams were available for comparison FINDINGS: Pulmonary Arteries: No evidence of filling defect to suggest pulmonary emboli. Tracheobronchial tree: Patent where visualized. Mediastinum and Alejandra: No dominant adenopathy or fluid collection. Pulmonary parenchyma: Respiratory motion at the lung bases. Focal area of atelectasis at the right c ostophrenic angle. Tiny bilateral pleural effusions. Heart: The heart is not dilated. No coronary artery calcifications are seen. Aorta: Thoracic aorta non-dilated. Upper abdomen: Unremarkable. Bones: Normal. IMPRESSION: No evidence of pulmonary embolism. Tiny bilateral pleural effusions. Small focal area of basilar at electasis. RADIATION DOSE DELIVERED: 615.49mGy.cm Total DLP DATA REPOSITORY: All CT scans at this facility are submitted to the National Radiology Data Registry (NRDR) Dose Index Registry (DIR) with the [employer] [place] [employer] ([employer]). RADIATION OPTIMIZATION: All CT scans at this facility use at least one of these dose optimization te chniques: automated exposure control; mA and/or kV adjustment per patient size (includes targeted exa ms where dose is matched to clinical indication); or iterative reconstruction.
[2021-02-27] MEDS: Normal Saline - Diluent 50 ML VIAL IV (12:17)
[2021-02-27] MEDS: Omnipaque 350 MG/ML 100 ML BTL IJ (12:17)
[2021-02-27] MEDS: Ondansetron 4 MG/2 ML VIAL (12:39)
[2021-02-27] MEDS: Acetaminophen 500 MG TAB (12:39)
[2021-02-27 13:24] VITALS: BP 122/78; PULSE 74; RESP 16; TEMP 36.7; O2SAT 99
[2021-02-27] MEDS: LORazepam 2 MG/ML VIAL 0.5 MG IVP (13:26)
[2021-02-27 13:33] VITALS: BP 122/78; PULSE 74; RESP 16; TEMP 36.7; O2SAT 99
== END 2021-02-27 13:33 | disposition home or self-care (01) ==
PROVIDERS: Emergency Provider Physician Assistant; PCP General Practice
DX: J98.11 Atelectasis (principal); E87.6 Hypokalemia
CPT/HCPCS: 36415; 71275; 80053; 93005; 94640; 96374; 96375; 99285; 84484; 85025; 85379; 93010; 99284; J2060; J2405; J3490; J7613